=== PATIENT | female | born 1960 | race Caucasian/White ===

== ENCOUNTER → 2021-02-10 | Outpatient (CLI) | payer SELFPAY, OTHER ==
[2021-02-10 13:15] LABS: HEMOGLOBIN 15.2 gm/dl (12.3-15.3); RED BLOOD COUNT 5.31 M/UL (4.00-5.10); WHITE BLOOD COUNT 5.9 K/UL (4.5-11.0)
[2021-02-10 13:36] LABS: BUN/CREATININE RATIO 26 (0-10)
[2021-02-15 00:11] LABS: TRAMADOL Positive (Cutoff=200); TRAMADOL See Final Results ng/mL (Cutoff=200); TRAMADOL GC/MS CONF 970 ng/mL (Cutoff=100)
== END ==
LOC: LAB 11:37
PROVIDERS: Nurse Practitioner Family
DX: Z51.81 Encounter for therapeutic drug level monitoring (principal); Z79.1 Long term (current) use of non-steroidal anti-inflammatories (NSAID)
CPT/HCPCS: 36415; 80053; 80307; 85025; 85652; 86140